=== PATIENT | female | born 1990 | race Caucasian/White ===

== ENCOUNTER 2020-02-24 01:26 | Inpatient (IN) | payer SELFPAY ==
[2020-02-24] MEDS ORDERED: Ondansetron PF 4 MG/2 ML Vial ONE ×3 (01:51→09:17)
[2020-02-24] MEDS ORDERED: Morphine 4 MG/ML VIAL ONE (01:51)
[2020-02-24] MEDS ORDERED: Dextrose 5% in Water 1,000 ML IV PRN (02:50)
[2020-02-24] MEDS ORDERED: Ondansetron PF 4 MG/2 ML Vial IVP PRN ×2 (02:50→11:53)
[2020-02-24] MEDS ORDERED: Dextrose 50% Abboject 50 ML SYRINGE SLOW IVP PRN (02:50)
[2020-02-24] MEDS ORDERED: Promethazine HCl 25 MG/ML VIAL IM PRN ×2 (02:50→11:13)
[2020-02-24] MEDS ORDERED: hydrALAZINE 20 MG/ML VIAL SLOW IVP PRN (02:50)
[2020-02-24] MEDS ORDERED: Morphine 2 MG/ML VIAL SLOW IVP PRN (02:50)
[2020-02-24 02:52] LABS: #Basophils 0.1 thou/uL (0.0-0.2); #Eosinphils 0.1 thou/uL (0.0-0.7); #Lymphocytes 2.7 thou/uL (1.20-3.40); #Monocytes 0.7 thou/uL (0.11-0.59); #Neutrophils 9.3 thou/uL (1.40-6.50); %Basophils 0.5 % (0.0-1.0); %Eosinophils 0.5 % (0.0-10.0); %Lymphocytes 21.1 % (21.0-51.0); %Monocytes 5.5 % (0.0-10.0); %Neutrophils 72.4 % (42.0-75.0); Hemoglobin 12.4 g/dL (12.0-16.0); Mean Corpuscular HGB CONC 33.2 g/dL (32.0-36.0); Mean Corpuscular Hemoglobin 29.7 pg (27.0-31.0); Mean Corpuscular Volume 89.4 fL (78.0-98.0); Mean Platelet Volume 7.4 fL (7.4-10.4); Platelet Count 335 thou/uL (130-400); RBC Distribution Width 14.6 % (11.5-14.5); Red Blood Cell (RBC) Count 4.19 mill/uL (4.20-5.40); White Blood Cell (WBC) Count 12.8 thou/uL (4.8-10.8)
[2020-02-24 02:54] LABS: ALT (SGPT) 11 U/L (8-55); AST (SGOT) 14 U/L (5-34); Albumin 4.3 g/dL (3.5-5.0); Alcohol 113 mg/dL (Less than 10); Alkaline Phosphatase 73 U/L (40-110); Anion Gap 16 mmol/L (10-20); BUN (Urea Nitrogen) 9 mg/dL (7.0-18.7); Bilirubin, Total Less than 0.2 mg/dL (0.2-1.2); Calc. Creatinine Clearance 0 mL/min (70-130); Calcium 8.1 mg/dL (7.8-10.44); Carbon Dioxide 21 mmol/L (22-29); Chloride 109 mmol/L (98-107); Globulin 2.8 g/dL (2.4-3.5); Glucose 104 mg/dL (70-105); Potassium 3.9 mmol/L (3.5-5.1); Protein, Total 7.1 g/dL (6.0-8.3); Sodium 142 mmol/L (136-145)
[2020-02-24] MEDS ORDERED: traMADol HCl 50 MG TAB PO PRN (02:55)
[2020-02-24] MEDS ORDERED: Ibuprofen 600 MG TAB PO PRN (02:55)
[2020-02-24] MEDS ORDERED: Sodium Chloride 0.9% 1,000 ML IV SCH (03:00)
[2020-02-24 03:14] LABS: BHCG - Serum Negative (NEGATIVE); Pregs Control Background? CLEAR/WHITE (CLR/WHITE); Pregs Control Bar Appear? YES (CONTROL BAR)
[2020-02-24] MEDS: Morphine 4 MG/ML VIAL SLOW IVP PRN ×3 (04:09→09:14)
[2020-02-24] MEDS: traMADol HCl 50 MG TAB PO PRN ×3 (04:09→21:01)
[2020-02-24] MEDS: Lactated Ringer's 1,000 ML IV SCH ×2 (04:11→12:56)
--- NOTE | 2020-02-24 04:14 | HP ---
CONSULTATION: Orthopedic Surgery, Dr. Horvath. PRIMARY CARE PHYSICIAN: None. CHIEF COMPLAINT: The patient was climbing a fence and jumped down, landing on both feet, twisting her ankle, right ankle pain. HISTORY OF PRESENT ILLNESS: This is a 29-year-old female with no past medical history, who presented to the emergency room by EMS with right ankle pain and deformity. The patient reports that she has been drinking tonight approximately a 6-pack. The patient was climbing a fence and went to jump down, landing on both feet, twisting her right ankle. The patient reports immediate pain. The patient denies any other injuries or any loss of consciousness or hitting her head. The patient denies any recent cough, cold, fever, chills, or any illnesses. The patient was evaluated in the emergency room and found to have a right ankle dislocation, which was reduced in the ER and a distal fibula fracture and also a medial malleolus fracture. The patient was given 1 L normal saline in the emergency room. REVIEW OF SYSTEMS: A 10-point review of systems is negative unless otherwise indicated in the above HPI. PAST MEDICAL HISTORY: Denies. SURGICAL HISTORY: Tubal ligation. MEDICATIONS: None. ALLERGIES: DENIES. SOCIAL HISTORY: The patient is a business quality assurance analyst, smokes half pack a day, drinks socially on the weekends, and denies illicit drug use. OBJECTIVE: VITAL SIGNS: Temperature 98.1, pulse 88, respirations 20, SpO2 of 98% on room air, and blood pressure 128/79. GENERAL: Well-appearing young female, awake, alert, in no distress. HEENT: Head is atraumatic and normocephalic. Oropharynx clear, mucous membranes mildly dry. NECK: No cervical spine tenderness, normal range of motion of neck, no JVD. RESPIRATORY: Good inspiratory and expiratory effort, bilateral breath sounds clear. CARDIAC: Regular rate. Regular rhythm. No murmurs, no pedal edema. ABDOMEN: Soft, nontender, nondistended. PELVIS: Stable. EXTREMITIES: Moves all extremities, distal pulses 2+. Right lower extremity in a splint. Cap refill less than 2 seconds. Abrasion to right middle finger. NEUROLOGIC: No focal deficits. GCS 15. LABORATORY DATA: WBC 12.8, RBC 4.19, hemoglobin 12.4, hematocrit 37.5, platelets 335. Sodium 142, potassium 3.9, chloride 109, carbon dioxide 21, BUN 9, creatinine 0.84, estimated GFR 80, glucose 104, calcium 8.1, AST 14, ALT 11, alkaline phosphatase phos 73, albumin 4.3. Plasma alcohol 113. DIAGNOSTIC DATA: Ankle x-ray: impression; fracture dislocation of right ankle, distal fibula fracture, medial malleolus fracture, pending official reads. IMPRESSION: 1. Status post jumping from fence. 2. Right ankle fracture dislocation, distal fibula fracture, and medial malleolus fracture. 3. Acute alcohol intoxication. PLAN: Admit the patient to the surgical floor. N.p.o. with maintenance IV fluids, lactated Ringer's at [address] Horvath with Orthopedic Surgery plans to take the patient to OR today for repair of her injuries. Pain control. Supportive care. PT/OT to evaluate and treat postop. Plan will be discussed with the attending after this dictation. Job ID: [id number]
[2020-02-24 04:24] VITALS: BMI 28.3
[2020-02-24] MEDS: Acetaminophen 500 MG TAB PO SCH ×3 (05:26→17:43)
[2020-02-24] MEDS: Polyethylene Glycol 3350 17 GM Packet PO SCH (07:19)
--- NOTE | 2020-02-24 07:47 | RAD ---
XR Ankle Rt 3 View STANDARD History: Fall. Injury Comparison: None. Findings: Pronation external rotation stage IV injury including a transversely oriented medial malleo lar fracture, fibular fracture above the syndesmosis, mild lateral talar shift, and posterior tibiofibular ligamentous injury. Impression: Pronation external rotation stage IV injury of the ankle.
--- NOTE | 2020-02-24 07:48 | RAD ---
XR Knee Rt 4 View STANDARD History: Trauma Comparison: None. Findings: No acute fracture of the knee. No significant joint effusion. Impression: No acute osseous abnormality.
[2020-02-24] MEDS: Cyclobenzaprine 10 MG TAB PO PRN ×2 (08:25→17:44)
[2020-02-24] MEDS: Famotidine/PF 20 mg/2ml Vial SLOW IVP SCH ×2 (08:25→21:02)
[2020-02-24] MEDS ORDERED: Senokot S 8.6-50 MG TAB PO SCH (09:00)
[2020-02-24] MEDS ORDERED: Glycopyrrolate 0.2 MG/ML 5 ML SYRINGE ONE (09:17)
[2020-02-24] MEDS ORDERED: Lidocaine 1% PF 5 ML VIAL ONE (09:17)
[2020-02-24] MEDS ORDERED: Rocuronium Bromide 10 MG/ML (10ML VIAL) ONE (09:17)
[2020-02-24] MEDS ORDERED: Ketorolac Tromethamine 30 MG/ML VIAL ONE (09:17)
[2020-02-24] MEDS ORDERED: PROPOFOL 200 MG/20 ML VIAL ONE (09:17)
[2020-02-24] MEDS ORDERED: Dexamethasone 20 MG/5 ML VIAL ONE (09:17)
[2020-02-24] MEDS ORDERED: Fentanyl 100 MCG/2 ML VIAL ONE (09:20)
[2020-02-24] MEDS ORDERED: HYDROmorphone 0.5 MG/0.5 ML SYRINGE ONE (09:21)
[2020-02-24] MEDS ORDERED: Dexmedetomidine 200 MCG/2 ML VIAL ONE (09:22)
[2020-02-24 09:36] LABS: SARS-CoV-2 MS2 Positive; SARS-CoV-2 N Gene Negative; SARS-CoV-2 S Gene Negative; SARS-CoV-2 by NAA Not Detected (NotDetected); SARS-CoV-2 orf1ab Negative
[2020-02-24 09:41] LABS: Cocaine Metabolite Screen Not Detected (NotDetected); Medtox Reader # READER 4; Methamphetamine Not Detected (NotDetected); Phencyclidine (PCP) Not Detected (NotDetected); THC/Cannabinoid Screen Detected (NotDetected)
[2020-02-24 09:42] LABS: Amphetamine Not Detected (NotDetected); Barbiturates Screen Not Detected (NotDetected); Benzodiazepine Screen Not Detected (NotDetected); Medtox Control Line Valid? VALID (VALID); Methadone Not Detected (NotDetected); Opiate Screen Detected (NotDetected); Oxycodone Screen Not Detected (NotDetected); Tricyclic Screen Not Detected (NotDetected)
[2020-02-24] MEDS ORDERED: Bupivacaine 0.25% HCL 30 ML VIAL ONE (10:41)
[2020-02-24] MEDS ORDERED: EPINEPHrine 1 MG/ML AMP ONE (10:41)
--- NOTE | 2020-02-24 11:01 | CON ---
DATE OF CONSULTATION: 02/24/2020 HISTORY OF PRESENT ILLNESS: The patient is a 29-year-old female, who was drinking alcohol last night. The patient states she was climbing a fence, went to jump down, landed on both feet, twisting her right ankle. She had immediate pain, deformity in the right ankle. She was brought to the emergency room, where the patient was found to have a bimalleolar fracture dislocation of the right ankle. The ankle was reduced. The patient was placed in a splint. The patient reports no neurologic complaints in her right foot. No other complaints elsewhere. PAST MEDICAL HISTORY: Medical illnesses, none. CURRENT MEDICATIONS: None. ALLERGIES: NONE. PAST SURGICAL HISTORY: Bilateral tubal ligation. PHYSICAL EXAMINATION: GENERAL: The patient is a pleasant female, alert and oriented x3. VITAL SIGNS: Temperature 98, pulse 65, respiratory rate 14, blood pressure 121/72, O2 saturation 97% on room air. HEENT: Unremarkable for age. Cranial nerves 2 through 12 are grossly intact. NECK: Good range of motion without pain. Thoracic and lumbar spine are nontender to palpation. LUNGS: Clear bilaterally. HEART: Regular rate and rhythm. ABDOMEN: Soft and nontender. Bowel sounds positive. : Not done. EXTREMITIES: The patient is able to move both upper extremities, left lower extremity without pain. The right lower extremity is in a posterior short-leg splint. She is able to flex and extend her toes well and has normal sensation, good capillary refill. X-RAYS: X-rays of the right ankle show fracture of the distal shaft of the right fibula with medial malleolar fracture. It has been reduced well but still is not in anatomic position. LABORATORY DATA: Laboratory shows white count 12.8, hemoglobin 12.4, hematocrit 37.5. Blood alcohol level 113. IMPRESSION: 1. Status post bimalleolar fracture dislocation of the right ankle. 2. Acute alcohol use. PLAN: The patient will require open reduction and internal fixation of the right ankle. Plan on using plate and screws on the distal fibular shaft fracture and cannulated screws in the medial malleolus. Potential risks with the condition of surgery include, but are not limited to infection, bleeding, pain, damage to blood vessels, nerves, nonunion, malunion, the patient may require additional surgery, DVT and PE formation. Patient's questions were answered, agreed to the procedure. Job ID: [id number]
[2020-02-24] MEDS ORDERED: Ondansetron HCl/PF 4 MG/2 ML Vial IVP PRN (11:13)
[2020-02-24] MEDS ORDERED: HYDROmorphone 2 MG/ML VIAL SLOW IVP PRN (11:13)
[2020-02-24] MEDS ORDERED: PACU-Morphine 4MG/ML VIAL SLOW IVP PRN (11:13)
[2020-02-24] MEDS ORDERED: Promethazine HCl 25 MG/ML VIAL SLOW IVP PRN (11:13)
--- NOTE | 2020-02-24 11:34 | RAD ---
RIGHT ANKLE 3 VIEWS: HISTORY: Intraoperative films. FINDINGS: This shows open reduction internal fixation of a bimalleolar fracture with plate and screws. IMPRESSION: Open reduction internal fixation of bimalleolar fracture. POS: IKE
[2020-02-24] MEDS ORDERED: Fentanyl 100 MCG/2 ML VIAL SLOW IVP PRN (11:53)
[2020-02-24] MEDS ORDERED: Ondansetron ODT 4 MG TAB PO PRN (11:53)
[2020-02-24] MEDS ORDERED: Cepastat Lozenges 1 LOZ PO PRN (11:53)
[2020-02-24] MEDS ORDERED: Milk Of Magnesia 30 ML UDCUP PO PRN (11:53)
[2020-02-24] MEDS ORDERED: Bisacodyl 10 MG SUPP PR PRN (11:53)
--- NOTE | 2020-02-24 12:33 | OP ---
DATE OF PROCEDURE: 02/24/2020 PREOPERATIVE DIAGNOSIS: Displaced bimalleolar fracture of the right ankle. POSTOPERATIVE DIAGNOSIS: Displaced bimalleolar fracture of the right ankle. PROCEDURE PERFORMED: Open reduction and internal fixation of bimalleolar fracture of the right ankle. ANESTHESIA: General. DESCRIPTION OF PROCEDURE: The patient was given preoperative IV antibiotics, taken to the operating room, placed in the supine position. Satisfactory general anesthesia was performed. The right lower extremity was sterilely prepped and draped in usual fashion. After exsanguination, tourniquet the right thigh was raised to 250 mmHg. A longitudinal incision was made on the lateral aspect of the distal leg over the distal fibular shaft. Blunt and sharp dissection was made down to the lateral aspect of the fibula. There was a slightly oblique fracture of the distal fibular shaft. This was reduced, held reduced with a bone clamp and then internally fixed with a [employer] 7-hole 3rd tubular locking plate. A 3.5 screw was placed distal and proximal to the fracture. The middle hole was left empty and the other four holes were filled with locking screws. C-arm was used to verify good alignment of the fibular shaft and proper placement of the plate and screws. A longitudinal incision was made down over the medial aspect of the ankle over the medial malleolus, approximately 1.5 inches in length. Medial malleolar fracture was identified. The joint was irrigated. The fracture was reduced and then internally fixed with two 4.0 cannulated screws. Again, C-arm was used during the procedure, showed good alignment of the ankle and bimalleolar fracture and reduced the subluxation that was present previously. The wounds were then copiously irrigated with antibiotic solution and closed using 0 Vicryl for the deeper tissue and 3-0 Rapid for the scan. The wound was then infiltrated with a total of 23 mL of 0.5% Marcaine with epinephrine. Sterile dressing was applied. Tourniquet was released. The patient was placed in a tall boot. She was awakened, extubated, and transferred to recovery room in stable condition. ESTIMATED BLOOD LOSS: 30 mL. COMPLICATIONS: None. TOURNIQUET TIME: 47 minutes. Job ID: [id number]
[2020-02-24] MEDS: Ketorolac Tromethamine 30 MG/ML VIAL IVP SCH ×2 (12:56→17:43)
--- NOTE | 2020-02-24 14:36 | PRG ---
DATE OF SERVICE: 02/24/2020 SUBJECTIVE: The patient was seen this afternoon. She was postop day 0 after fixation of her right ankle fracture dislocation by Dr. Horvath. At the time of my evaluation, she reported that her pain was 8/10. She had not received any pain medications since returning from the OR. She has voided. She is waiting to have her first meal. She would like some better pain control before trying to eat. OBJECTIVE: VITAL SIGNS: Temperature 98.2, pulse 61, respirations 20, oxygen saturation 97% on 2 L nasal cannula, and blood pressure 138/82. GENERAL: Well-appearing young female, sitting up in bed with no signs of acute distress. PULMONARY: Equal chest rise and fall. Clear breath sounds bilaterally. No signs of acute respiratory distress. CARDIAC: Regular rate and rhythm. GASTROINTESTINAL: Abdomen is soft, nontender, and nondistended. EXTREMITIES: 2+ pulses in all extremities. Gross motor and sensation intact. No significant swelling noted. Right lower extremity in walking boot. The patient able to wiggle toes appropriately. NEUROLOGIC: GCS is 15. LABORATORY FINDINGS: There are no new laboratory findings to discuss. DIAGNOSTIC FINDINGS: There are no new diagnostic findings to discuss. ASSESSMENT: 1. Status post jump from fence. 2. Right ankle fracture dislocation, status post repair. PLAN: Continue current diet and pain regimen. Start physical and occupational therapy. Repeat blood work in the morning if her pain is controlled and she can move around safely with Physical therapy tomorrow, we will discharge her home then. This patient was discussed with Dr. Kate before this dictation. Job ID: [id number]
[2020-02-24] MEDS: CEFAZOLIN 2 GM in Premix Bag 1 BAG IVPB SCH (17:44)
[2020-02-24] MEDS: Senokot S 8.6-50 MG TAB PO SCH (21:02)
[2020-02-25] MEDS: Ketorolac Tromethamine 30 MG/ML VIAL IVP SCH ×3 (00:03→12:27)
[2020-02-25] MEDS: Acetaminophen 500 MG TAB PO SCH ×3 (00:03→12:26)
[2020-02-25] MEDS: CEFAZOLIN 2 GM in Premix Bag 1 BAG IVPB SCH (01:41)
[2020-02-25 05:19] LABS: #Lymphocytes 2.5 thou/uL (1.20-3.40); #Monocytes 1.1 thou/uL (0.11-0.59); #Neutrophils 10.7 thou/uL (1.40-6.50); %Basophils 0.1 % (0.0-1.0); %Eosinophils 0.1 % (0.0-10.0); %Lymphocytes 17.4 % (21.0-51.0); %Monocytes 7.6 % (0.0-10.0); %Neutrophils 74.8 % (42.0-75.0); Hemoglobin 10.7 g/dL (12.0-16.0); Mean Corpuscular HGB CONC 32.3 g/dL (32.0-36.0); Mean Corpuscular Hemoglobin 28.9 pg (27.0-31.0); Mean Corpuscular Volume 89.4 fL (78.0-98.0); Mean Platelet Volume 7.2 fL (7.4-10.4); Platelet Count 270 thou/uL (130-400); RBC Distribution Width 14.5 % (11.5-14.5); Red Blood Cell (RBC) Count 3.71 mill/uL (4.20-5.40); White Blood Cell (WBC) Count 14.3 thou/uL (4.8-10.8)
[2020-02-25 05:40] LABS: Anion Gap 14 mmol/L (10-20); BUN (Urea Nitrogen) 10 mg/dL (7.0-18.7); Calc. Creatinine Clearance 124 mL/min (70-130); Calcium 8.3 mg/dL (7.8-10.44); Carbon Dioxide 23 mmol/L (22-29); Chloride 104 mmol/L (98-107); Glucose 110 mg/dL (70-105); Magnesium 1.8 mg/dL (1.6-2.6); Phosphorus 3.1 mg/dL (2.3-4.7); Sodium 137 mmol/L (136-145)
[2020-02-25] MEDS: Senokot S 8.6-50 MG TAB PO SCH (08:41)
[2020-02-25] MEDS: traMADol HCl 50 MG TAB PO PRN ×2 (08:42→15:47)
[2020-02-25] MEDS: Famotidine/PF 20 mg/2ml Vial SLOW IVP SCH (08:43)
[2020-02-25] MEDS: Polyethylene Glycol 3350 17 GM Packet PO SCH (08:43)
[2020-02-25] MEDS ORDERED: Multivitamin W/ Minerals 1 TAB PO SCH (09:00)
[2020-02-25] MEDS ORDERED: Ibuprofen 600 MG TAB PO SCH (14:00)
[2020-02-25 16:34] VITALS: BP 126/80; TEMP 98.6
--- NOTE | 2020-02-26 07:45 | DIS ---
DATE OF ADMISSION: 02/24/2020 DATE OF DISCHARGE: 02/25/2020 ADMISSION DIAGNOSES: Jump from fence and right ankle fracture dislocation. DISCHARGE DIAGNOSES: Jump from fence and right ankle fracture dislocation. CONSULTING PHYSICIAN: Dr. Horvath of Orthopedic Surgery. PROCEDURES: The patient went to the OR on February 24, 2020, and had an ORIF of the bimalleolar fracture of the right ankle. HOSPITAL COURSE: The patient is a 29-year-old female, who presented to the emergency department after jumping from a fence and twisting her ankle causing a right-sided bimalleolar ankle fracture dislocation. She was admitted to the Trauma Service and went to the OR the same day with Dr. Horvath for fixation. Postoperatively, she worked with Physical and Occupational Therapy. At the time of discharge, her pain is well controlled. She was tolerating a regular diet, voiding without difficulties, and moving around safely with crutches. DISCHARGE DISPOSITION: Home. DISCHARGE CONDITION: Satisfactory. PHYSICAL EXAMINATION: VITAL SIGNS: Temperature 98.3, pulse 58, respirations 16, oxygen saturation 98% on room air, and blood pressure 112/73. GENERAL: Well-appearing young female, sitting up in bed with no signs of acute distress. PULMONARY: Equal chest rise and fall. No signs of acute respiratory distress. EXTREMITIES: 2+ pulses in all extremities. Gross motor and sensation are intact. Right lower extremity with walking boot in place. Postop dressing is clean, dry, and intact. NEURO: GCS is 15. DISCHARGE INSTRUCTIONS: The patient was discharged home. Activity as tolerated. Nonweightbearing right lower extremity. Regular diet. She will have crutches. DISCHARGE MEDICATIONS: Include, 1. Tylenol. 2. Flexeril. 3. Ibuprofen. 4. MiraLAX. 5. Tramadol. FOLLOWUP APPOINTMENTS: The patient is to follow up with Dr. Horvath in 14 days. No followup is needed with Dr. Kate in [facility]uma [facility]. This is a summary of the patient's hospitalization. For full details, please see her medical record in its entirety. The [employer] Prescription Monitoring Program was accessed, and the patient was discharged home safely and appropriately on pain medications used during her hospital stay for pain control. This patient was seen and evaluated by myself on the day of discharge. Job ID: [id number]
== END 2020-02-25 16:55 | disposition home or self-care (01) | DRG 494 ==
LOC: ERS 01:26 → SURG A 02:50
PROVIDERS: ADMIT Surgery; ATTEND Surgery
PROC: 0QSG04Z Reposition Right Tibia with Internal Fixation Device, Open Approach (ICD-10-PCS; principal; 2020-02-24)
PROC: 0SSFXZZ Reposition Right Ankle Joint, External Approach (ICD-10-PCS; 2020-02-24)
DX: S82.841A Displaced bimalleolar fracture of right lower leg, initial encounter for closed fracture (principal); W13.8XXA Fall from, out of or through other building or structure, initial encounter; Z20.828 Contact with and (suspected) exposure to other viral communicable diseases; F17.210 Nicotine dependence, cigarettes, uncomplicated; Y90.6 Blood alcohol level of 120-199 mg/100 ml; F10.129 Alcohol abuse with intoxication, unspecified; Z98.51 Tubal ligation status
CPT/HCPCS: 27762; 36415; 76000; 80048; 80053; 80306; 80307; 83735; 84100; 84703; 85025; 87635; 96374; 96375; C1713; C1769; J0171; J0690; J1100; J1170; J1885; J2270; J2405; J2704; J3010; S0020; S0028; U0003